=== PATIENT | female | born 1940 | race Caucasian/White ===

== ENCOUNTER → 2020-11-20 | Outpatient (REF) | payer MEDICARE, OTHER | LOC: M LAB REF 08:22 | PROVIDERS: ATTEND Surgery | DX: N64.52 Nipple discharge (principal); L91.8 Other hypertrophic disorders of the skin ==

== ENCOUNTER → 2021-10-21 | Outpatient (CLI) | payer MEDICARE, OTHER ==
[~2021-10-21] MED LIST: ASPI81CH48 PO; ATRO0.063 INH; B-12100010 PO; BACL5TAB2 PO; BUSP5TAB81 PO; CRES10TA PO; CYMB1CAP5 PO; FLON1SPR NARES; HYDR-3910 PO; JANU100T PO; K-TA10TA2 PO; LOPR1TAB7 PO; LOSA100T45 PO; LOSA50TA28 PO; MAPA500C PO; MIRA3350 PO; PANT40TA29 PO; PROP20TA72 PO; [UNRECOGNIZED DRUG - CODE] PO
== END ==
LOC: M PLARAD 12:57
PROVIDERS: ATTEND Internal Medicine Cardiovascular Disease
DX: R91.8 Other nonspecific abnormal finding of lung field (principal)
CPT/HCPCS: 78815; A9552

== ENCOUNTER → 2021-12-13 | Outpatient (CLI) | payer MEDICARE, OTHER | LOC: M ONCR 13:48 | PROVIDERS: ATTEND General Practice | DX: C34.11 Malignant neoplasm of upper lobe, right bronchus or lung (principal); Z79.82 Long term (current) use of aspirin; Z79.899 Other long term (current) drug therapy; Z85.09 Personal history of malignant neoplasm of other digestive organs; Z87.891 Personal history of nicotine dependence; Z88.1 Allergy status to other antibiotic agents; Z88.2 Allergy status to sulfonamides ==

== ENCOUNTER 2021-12-24 07:17 | Outpatient (RCR) | payer MEDICARE, OTHER | END 2021-12-30 | LOC: M ONCR 07:17 | PROVIDERS: ATTEND General Practice | DX: C34.11 Malignant neoplasm of upper lobe, right bronchus or lung (principal) ==

== ENCOUNTER 2022-01-10 12:52 | Outpatient (RCR) | payer MEDICARE, OTHER | END 2022-01-30 | LOC: M ONCR 12:52 | PROVIDERS: ATTEND General Practice | DX: C34.11 Malignant neoplasm of upper lobe, right bronchus or lung (principal) ==

== ENCOUNTER → 2022-04-22 | Outpatient (CLI) | payer MEDICARE, OTHER | LOC: M ONCR 09:55 | PROVIDERS: ATTEND General Practice | DX: C34.11 Malignant neoplasm of upper lobe, right bronchus or lung (principal); Z85.818 Personal history of malignant neoplasm of other sites of lip, oral cavity, and pharynx; Z92.3 Personal history of irradiation; Z88.1 Allergy status to other antibiotic agents; Z88.2 Allergy status to sulfonamides; Z79.82 Long term (current) use of aspirin; Z79.899 Other long term (current) drug therapy; Z87.891 Personal history of nicotine dependence ==

== ENCOUNTER → 2022-09-29 | Outpatient (CLI) | payer MEDICARE, OTHER ==
[~2022-09-29] MED LIST changes: +BUSP5TAB PO; -BUSP5TAB81 PO
== END ==
LOC: M PLARAD 09:25
PROVIDERS: ATTEND Internal Medicine Cardiovascular Disease
DX: R91.8 Other nonspecific abnormal finding of lung field (principal)
CPT/HCPCS: 78815; A9552

== ENCOUNTER → 2022-10-31 | Outpatient (CLI) | payer MEDICARE, OTHER ==
[~2022-10-31] MED LIST changes: +LIDO2SOL17 PO
== END ==
LOC: M ONCR 10:49
PROVIDERS: ATTEND General Practice
DX: C34.11 Malignant neoplasm of upper lobe, right bronchus or lung (principal); R59.0 Localized enlarged lymph nodes; Z79.82 Long term (current) use of aspirin; Z79.899 Other long term (current) drug therapy; Z85.819 Personal history of malignant neoplasm of unspecified site of lip, oral cavity, and pharynx; Z87.891 Personal history of nicotine dependence; Z88.1 Allergy status to other antibiotic agents; Z88.2 Allergy status to sulfonamides; Z92.3 Personal history of irradiation

== ENCOUNTER 2022-12-03 06:53 | Day surgery (SDC) | payer MEDICARE, OTHER ==
[~2022-12-03] VITALS: Ht 160 cm; Wt 77.6 kg
[~2022-12-03 06:53] MED LIST changes: +ALBUTEROL SULFATE 2.5MG/0.5ML INH NEB SOLN INH ONE; +COZA50TA PO; +EZET10TA21 PO; +IPRA3SP NARES; +LIDO15SO4 PO; -LIDO2SOL17 PO; +LIDOCAINE PRES-FREE 2% 10ML AMP INH ONE; +METF10004 PO; +NEUR300C PO; +NITR0.4S14 SL; +PROP120C PO
[2022-12-03] MEDS ORDERED: PARO5TAB PO (07:30)
[2022-12-03] MEDS ORDERED: LIDVISCBTL PO (07:30)
[2022-12-03] MEDS ORDERED: ONDANSETRON 4MG 2ML VIAL As Ordered ONE (08:03)
[2022-12-03] MEDS ORDERED: fentaNYL 100 MCG/2 ML INJECTION As Ordered ONE (08:03)
[2022-12-03] MEDS ORDERED: propofoL 200 MG/20 ML VIAL As Ordered ONE (08:04)
[2022-12-03] MEDS ORDERED: ROCURONIUM BROMIDE 50MG/5ML VIAL As Ordered ONE (08:04)
[2022-12-03] MEDS ORDERED: LIDOCAINE 2% 100MG/5ML SDV (FOR ANES.) As Ordered ONE (08:04)
[2022-12-03] MEDS ORDERED: CETACAINE SPRAY 5GM As Ordered ONE (08:36)
[2022-12-03] MEDS ORDERED: EPINEPHrine 1MG/10ML SYRINGE 1.5IN As Ordered ONE (08:37)
[2022-12-03] MEDS ORDERED: SUGAMMADEX SODIUM 500 MG/5 ML VIAL (BRIDION) As Ordered ONE (09:26)
[2022-12-03] MEDS ORDERED: ePHEDrine SULFATE 25 MG/5 ML(5MG/ML) SYRINGE As Ordered ONE (09:26)
[2022-12-03] MEDS ORDERED: fentaNYL 100 MCG/2 ML INJECTION IV PRN (09:45)
[2022-12-03] MEDS ORDERED: oxyCODONE 5MG TAB PO PRN (09:45)
[2022-12-03] MEDS ORDERED: ONDANSETRON 4MG 2ML VIAL IV PRN (09:45)
[2022-12-03] MEDS ORDERED: LR 1,000 ML IV SCH (09:45)
[2022-12-03] MEDS ORDERED: INSULIN LISPRO (NovoLOG) PER UNIT SC PRN (09:45)
[2022-12-03 11:38] VITALS: BP 140/68
== END 2022-12-03 11:40 | disposition home or self-care (01) ==
LOC: M SDC 06:53
PROVIDERS: ATTEND Internal Medicine Critical Care Medicine
DX: R91.8 Other nonspecific abnormal finding of lung field (principal); R59.0 Localized enlarged lymph nodes; R06.00 Dyspnea, unspecified; R53.83 Other fatigue; R06.2 Wheezing; I25.10 Atherosclerotic heart disease of native coronary artery without angina pectoris; I10 Essential (primary) hypertension; E78.5 Hyperlipidemia, unspecified; F32.A Depression, unspecified; K21.9 Gastro-esophageal reflux disease without esophagitis; E11.9 Type 2 diabetes mellitus without complications; F41.9 Anxiety disorder, unspecified; J44.9 Chronic obstructive pulmonary disease, unspecified; Z79.899 Other long term (current) drug therapy; Z79.82 Long term (current) use of aspirin; Z79.84 Long term (current) use of oral hypoglycemic drugs; Z95.5 Presence of coronary angioplasty implant and graft; Z87.891 Personal history of nicotine dependence
CPT/HCPCS: 31624; 31628; 31653; 71045; 76000; 87070; 87102; 87116; 87205; 87206; 88108; 88173; 88305; 88312; 88313; J1100; J2405; J3010

== ENCOUNTER → 2022-12-10 | Outpatient (CLI) | payer MEDICARE, OTHER ==
[~2022-12-10] MED LIST changes: -ALBUTEROL SULFATE 2.5MG/0.5ML INH NEB SOLN INH ONE; -LIDOCAINE PRES-FREE 2% 10ML AMP INH ONE; +LIDVISCBTL PO; +PARO5TAB PO
== END ==
LOC: M ONCR 10:55
PROVIDERS: ATTEND General Practice
DX: C34.11 Malignant neoplasm of upper lobe, right bronchus or lung (principal); J18.9 Pneumonia, unspecified organism; Z79.51 Long term (current) use of inhaled steroids; Z79.82 Long term (current) use of aspirin; Z79.84 Long term (current) use of oral hypoglycemic drugs; Z79.899 Other long term (current) drug therapy; Z85.818 Personal history of malignant neoplasm of other sites of lip, oral cavity, and pharynx; Z87.891 Personal history of nicotine dependence; Z92.3 Personal history of irradiation

== ENCOUNTER → 2023-04-16 | Outpatient (CLI) | payer MEDICARE, OTHER ==
[~2023-04-16] MED LIST changes: -COZA50TA PO; -K-TA10TA2 PO; +LIDO15SO PO; -LIDO15SO4 PO; +LOSA-528 PO; -LOSA100T45 PO; +LOSA100T46 PO; +POTA-165 PO; +PROA1AER2 INH
== END ==
LOC: M ONCR 10:56
PROVIDERS: ATTEND General Practice
DX: C34.11 Malignant neoplasm of upper lobe, right bronchus or lung (principal); Z85.818 Personal history of malignant neoplasm of other sites of lip, oral cavity, and pharynx; Z71.2 Person consulting for explanation of examination or test findings; Z79.51 Long term (current) use of inhaled steroids; Z79.82 Long term (current) use of aspirin; Z79.84 Long term (current) use of oral hypoglycemic drugs; Z79.899 Other long term (current) drug therapy; Z87.891 Personal history of nicotine dependence; Z92.3 Personal history of irradiation

== ENCOUNTER → 2024-03-22 | Outpatient (CLI) | payer MEDICARE, OTHER ==
[~2024-03-22] MED LIST changes: +BUDE10.7 INH; -HYDR-3910 PO; +HYDR25TA87 PO; -LIDO15SO PO; +LIDO15SO8 PO; +LIDVISCBTL SSP
== END ==
LOC: M ONCR 09:24
PROVIDERS: ATTEND General Practice
DX: C34.11 Malignant neoplasm of upper lobe, right bronchus or lung (principal); K13.79 Other lesions of oral mucosa; Z85.819 Personal history of malignant neoplasm of unspecified site of lip, oral cavity, and pharynx; Z71.2 Person consulting for explanation of examination or test findings; Z79.51 Long term (current) use of inhaled steroids; Z79.82 Long term (current) use of aspirin; Z79.84 Long term (current) use of oral hypoglycemic drugs; Z79.899 Other long term (current) drug therapy; Z87.891 Personal history of nicotine dependence; Z92.3 Personal history of irradiation

== ENCOUNTER → 2024-05-30 | Outpatient (CLI) | payer MEDICARE, OTHER | LOC: M PLARAD 13:19 | PROVIDERS: ATTEND General Practice | DX: C34.11 Malignant neoplasm of upper lobe, right bronchus or lung (principal) | CPT/HCPCS: 78815; A9552 ==

== ENCOUNTER → 2024-06-09 | Outpatient (CLI) | payer MEDICARE, OTHER | LOC: M ONCR 11:29 | PROVIDERS: ATTEND General Practice | DX: C34.11 Malignant neoplasm of upper lobe, right bronchus or lung (principal); Z87.891 Personal history of nicotine dependence; Z92.3 Personal history of irradiation; Z85.818 Personal history of malignant neoplasm of other sites of lip, oral cavity, and pharynx; Z79.84 Long term (current) use of oral hypoglycemic drugs; Z79.899 Other long term (current) drug therapy; Z79.51 Long term (current) use of inhaled steroids; Z79.82 Long term (current) use of aspirin ==

== ENCOUNTER → 2024-12-13 | Outpatient (CLI) | payer OTHER | LOC: M ONCR 10:39 | PROVIDERS: ATTEND General Practice | DX: C34.11 Malignant neoplasm of upper lobe, right bronchus or lung (principal); Z87.891 Personal history of nicotine dependence; Z98.890 Other specified postprocedural states; Z85.818 Personal history of malignant neoplasm of other sites of lip, oral cavity, and pharynx; Z48.3 Aftercare following surgery for neoplasm; Z92.3 Personal history of irradiation; Z95.5 Presence of coronary angioplasty implant and graft; Z79.899 Other long term (current) drug therapy; Z79.82 Long term (current) use of aspirin; Z79.84 Long term (current) use of oral hypoglycemic drugs; Z79.51 Long term (current) use of inhaled steroids ==

== ENCOUNTER → 2025-06-20 | Outpatient (CLI) | payer OTHER | LOC: M RAD 13:49 | PROVIDERS: ATTEND General Practice | DX: C34.11 Malignant neoplasm of upper lobe, right bronchus or lung (principal) ==

== ENCOUNTER → 2025-06-27 | Outpatient (CLI) | payer OTHER | LOC: M ONCR 10:48 | PROVIDERS: ATTEND General Practice | DX: C34.11 Malignant neoplasm of upper lobe, right bronchus or lung (principal); G89.29 Other chronic pain; Z85.818 Personal history of malignant neoplasm of other sites of lip, oral cavity, and pharynx; Z87.891 Personal history of nicotine dependence; Z98.890 Other specified postprocedural states; Z92.3 Personal history of irradiation; Z79.84 Long term (current) use of oral hypoglycemic drugs; Z79.899 Other long term (current) drug therapy; Z79.51 Long term (current) use of inhaled steroids; Z79.82 Long term (current) use of aspirin ==

== ENCOUNTER → 2025-06-29 | Outpatient (CLI) | payer OTHER | LOC: M PAL 14:24 | PROVIDERS: ATTEND Physician Assistant | DX: Z51.5 Encounter for palliative care (principal); Z85.3 Personal history of malignant neoplasm of breast; Z92.3 Personal history of irradiation; Z79.891 Long term (current) use of opiate analgesic; Z79.899 Other long term (current) drug therapy; Z79.52 Long term (current) use of systemic steroids; I25.119 Atherosclerotic heart disease of native coronary artery with unspecified angina pectoris; G47.33 Obstructive sleep apnea (adult) (pediatric); K21.9 Gastro-esophageal reflux disease without esophagitis; I10 Essential (primary) hypertension ==